=== PATIENT | male | born 1975 | race African-American/Black ===

== ENCOUNTER 2017-01-14 09:43 | Emergency (ER) | payer SELFPAY ==
[2017-01-14 09:51] VITALS: BP 128/88; BMI 21.6
--- NOTE | 2017-01-14 10:47 | DR.GENAD ---
HPI - PCP Primary Care Physician: nfd - HPI Comment HPI Comment: PATIENT UNABLE TO URINATE, ABDOMINAL AND FLANK PAIN, STARTED THIS AM. NO FEVER. - Complaint/Symptoms Chief Complaint Doctors Comments: URINARY RETENSION THIS AM, ABDOMINAL PAIN AND FLANK PAIN. Chief Complaint:: patient stated that he can't urinate. he stated that this started this morning - Nurses notes reviewed Nurses Notes Review: Yes - Source History Provided: Patient - Mode of Arrival Mode of Arrival: Ambulatory - Timing Onset of Chief Complaint: 01/14/17 Came on: Suddenly - Duration Duration: Constant Duration: Hours - Severity Severity: Moderate PMH - PMH Past Medical History: No Past Medical History: [place] Past Surgical History: No Surgical History: No History - Family History History of Family Medical Conditions: Yes Family Medical History: Diabetes Mellitus, Coronary Artery Disease - Social History Does patient currently use any type of tobacco product: Yes Have you used tobacco products in the last 12 months: Yes Type of Tobacco Use: Cigarettes Does any household member use tobacco: No Alcohol Use: DAILY Do you use any recreational Drugs:: No Lives With: Family Lives Where: Home - infectious screening In the last 2 months have you had wt loss of >10#?: NO Have you had fever, night sweats or hemotysis?: No Have you traveled outside the country in the last 6 months?: No Isolation: Standard ROS - Review of Systems Constitutional: No Symptoms Reported. negative: Chills, Fever, Weakness, Fatigue Eyes: No Symptoms Reported. negative: Eye Pain, Discharge ENTM: No Symptoms Reported. negative: Ear Pain, Nose Discharge, Nose Congestion , Throat Pain Respiratoy: No Symptoms Reported. negative: Productive Cough, Non-Productive Cough, Short of Breath, Wheezing, Hemoptysis Cardiovascular: No Symptoms Reported. negative: Chest Pain Gastrointestinal/Abdominal: Abdominal Pain Genitourinary: Other (URINARY RETENSION) Neurological: No Symptoms Reported Musculoskeletal: No Symptoms Reported Integumentary: No Symptoms Reported Hematologic/Lymphatic: No Symptoms Reported Endocrine: No Symptoms Reported All Other Systems: Reviewed and Negative PE - Vital Signs Vitals: Temperature 97.4 F Pulse Rate 71 Respiratory Rate 20 Blood Pressure [Right Arm] 114/71 Blood Pressure [Left Arm] 129/75 Blood Pressure 128/88 O2 Sat by Pulse Oximetry 98 - General Limitations: No Limitations General Appearance: Alert - Head Head Exam: Normal Inspection - Eyes Eye exam: Normal Appearance - ENT ENT Exam: Normal External Ear Exam External Ear Exam: Normal External Inspection TM/Canal Exam: Bilateral Normal Nose Exam: Normal Nose Exam Mouth Exam: Normal Inspection Throat Exam: Normal Inspection - Neck Neck Exam: Trachea Midline - Chest Chest Inspection: Symmetric Chest Wall Rise - Respiratory Respiratory Exam: Normal Lung Sounds Bilat Respiratory Exam: Bilateral Clear to Auscultation - Cardiovascular Cardiovascular Exam: Regular Rate, Normal Rhythm, Normal Heart Sounds - Abdominal Exam Abdominal Exam: Normal Bowel Sounds, Soft, Tenderness Abdominal Tenderness: Other (BLADDER PALPABLE ABOVE UMBILICUS.) - Extremities Extremities Exam: Normal Inspection - Back Back Exam: Normal Inspection - Neurologic Neurological Exam: Alert, Oriented X3 - Psychiatric Psychiatric Exam: Anxious - Skin Skin Exam: Normal Color MDM - Differential Diagnosis Differential Diagnosis: URINARY RETENSION, KIDNEY STONE, UTI Course - Treatment Treatment: SEE ORDERS - Education/Counseling Education/Counseling: Patient, Education Educated On: Treatment, Diagnosis, Needs for Follow Up ROR - Labs Reviewed Laboratory Results Reviewed?: Yes Result Diagrams: 01/14/17 11:10 01/14/17 11:10 Laboratory: WBC 7.2 X10^3/uL (3.6-10.0) 01/14/17 11:10 RBC 4.12 X10^6/uL (4.7-6.0) L 01/14/17 11:10 Hgb 13.0 g/dL (13.5-18.0) L 01/14/17 11:10 Hct 38.7 % (42.0-54.0) L 01/14/17 11:10 MCV 94.0 fL (80.0-100.0) 01/14/17 11:10 MCH 31.5 pg (27.0-34.0) 01/14/17 11:10 MCHC 33.6 g/dL (33.0-35.0) 01/14/17 11:10 RDW 14.7 % (11.6-16.5) 01/14/17 11:10 Plt Count 103 X10^3/uL (150.0-450.0) L 01/14/17 11:10 MPV 10.1 fL (7.4-11.0) 01/14/17 11:10 Neut % 74.5 % (42.0-75.0) 01/14/17 11:10 Lymph % 18.3 % (21.0-51.0) L 01/14/17 11:10 [place] % 6.5 % (0.0-13.0) 01/14/17 11:10 Eos % 0.3 % (0.9-2.9) L 01/14/17 11:10 Baso % 0.4 % (0.2-1.0) 01/14/17 11:10 Neut # 5.4 x10^3/uL (2.2-4.8) H 01/14/17 11:10 Lymph # 1.3 X10^3/uL (1.3-2.9) 01/14/17 11:10 [place] # 0.5 x10^3/uL (0.3-0.8) 01/14/17 11:10 Eos # 0.0 x10^3/uL (0.0-0.2) 01/14/17 11:10 Baso # 0.0 X10^3/uL (0.0-0.1) 01/14/17 11:10 Absolute Nucleated RBC 0.1 /100WBC 01/14/17 11:10 Sodium 139 mmol/L (136-145) 01/14/17 11:10 Corrected Sodium 139 mmol/L (136-145) 01/14/17 11:10 Potassium 4.0 mmol/L (3.5-5.1) 01/14/17 11:10 Chloride 105 mmol/L (98-107) 01/14/17 11:10 Carbon Dioxide 23.2 mmol/L (21-32) 01/14/17 11:10 BUN 12 mg/dL (7-18) 01/14/17 11:10 Creatinine 1.02 mg/dL (0.70-1.30) 01/14/17 11:10 Est GFR (MDRD) Af Amer > 60 (>60) 01/14/17 11:10 Est GFR (MDRD) Non-Af > 60 (>60) 01/14/17 11:10 Glucose 113 mg/dL (65-99) H 01/14/17 11:10 Calcium 8.0 mg/dL (8.5-10.1) L 01/14/17 11:10 Corrected Calcium TNP 01/14/17 11:10 Total Bilirubin 0.30 mg/dL (0.2-1.0) 01/14/17 11:10 AST 29 Units/L (15-37) 01/14/17 11:10 ALT 17 Units/L (12-78) 01/14/17 11:10 Alkaline Phosphatase 60 Units/L (46-116) 01/14/17 11:10 Total Protein 8.1 g/dL (6.4-8.2) 01/14/17 11:10 Albumin 4.1 g/dL (3.4-5.0) 01/14/17 11:10 Globulin 4.0 g/dL (2.5-4.5) 01/14/17 11:10 Albumin/Globulin Ratio 1.0 Ratio (1.1-2.1) L 01/14/17 11:10 Specimen Type Clean catch urine 01/14/17 11:15 Urine Color Bloody (YELLOW) 01/14/17 11:15 Urine Appearance Hazy (CLEAR) 01/14/17 11:15 Urine RBC Tntc /HPF (NEGATIVE) 01/14/17 11:15 Urine WBC 0-3 /HPF (NEGATIVE) 01/14/17 11:15 Ur Squamous Epith Cells Rare /HPF (NEGATIVE) 01/14/17 11:15 Urine Bacteria Trace /HPF (Negative) 01/14/17 11:15 Micro UA Comment Not ordered (-) 01/14/17 11:15 - XRAY XRAY Interpreted by: Radiologist XRAY Findings: REPORT DISCUSS WITH PATIENT. - Diagnosis Discharge Problem: Urinary retention, Flank pain Hydronephrosis Qualifiers: Hydronephrosis type: with other ureteral stricture Qualified Code(s): N13.1 - Hydronephrosis with ureteral stricture, not elsewhere classified - Discharge Plan Disposition: 01 HOME, SELF-CARE Condition: Stable - Follow ups/Referrals Follow ups/Referrals: SHANNAN ARCHIBALD [STAFF PHYSICIAN] - 1 day NFD,None [Primary Care Provider] - 1 day - Instructions Instructions: Acute Urinary Retention, Male, Hydronephrosis, Flank Pain, Easy- to-Read Additional Instructions: SEE UROLOGIST SOON POSSIBLE. YOU ALSO HAVE ENLARGE PROSTATE. UROLOGIST DR RICHARD IS IN [place]. OFFICE NUMBER [id number] AND DR. HDZ IN [place]. OFFICE NUMBER [phone].
[2017-01-14 11:23] LABS: BASOPHILS % (AUTO) 0.4 % (0.2-1.0); EOSINOPHILS % (AUTO) 0.3 % (0.9-2.9); HEMATOCRIT 38.7 % (42.0-54.0); LYMPHOCYTES # (AUTO) 1.3 X10^3/uL (1.3-2.9); LYMPHOCYTES % (AUTO) 18.3 % (21.0-51.0); MEAN CORPUSCULAR HEMOGLOBIN 31.5 pg (27.0-34.0); MEAN CORPUSCULAR HGB CONC 33.6 g/dL (33.0-35.0); MEAN PLATELET VOLUME 10.1 fL (7.4-11.0); MONOCYTES # (AUTO) 0.5 x10^3/uL (0.3-0.8); MONOCYTES % (AUTO) 6.5 % (0.0-13.0); NEUTROPHILS # (AUTO) 5.4 x10^3/uL (2.2-4.8); NEUTROPHILS % (AUTO) 74.5 % (42.0-75.0); PLATELET COUNT 103 X10^3/uL (150.0-450.0); RED BLOOD COUNT 4.12 X10^6/uL (4.7-6.0); RED CELL DISTRIBUTION WIDTH 14.7 % (11.6-16.5); WHITE BLOOD COUNT 7.2 X10^3/uL (3.6-10.0)
[2017-01-14 11:34] LABS: ALANINE AMINOTRANSFERASE 17 Units/L (12-78); ALBUMIN 4.1 g/dL (3.4-5.0); ALKALINE PHOSPHATASE 60 Units/L (46-116); ASPARTATE AMINO TRANSFERASE 29 Units/L (15-37); BLOOD UREA NITROGEN 12 mg/dL (7-18); CARBON DIOXIDE 23.2 mmol/L (21-32); CHLORIDE 105 mmol/L (98-107); COR NA(FOR HYPERGLY) 139 mmol/L (136-145); CREATININE 1.02 mg/dL (0.70-1.30); GLUCOSE 113 mg/dL (65-99); SODIUM 139 mmol/L (136-145); TOTAL PROTEIN 8.1 g/dL (6.4-8.2); eGFR BLACK RACES > 60 (>60); eGFR NON BLACK RACES > 60 (>60)
[2017-01-14 11:48] LABS: APPEARANCE,URINE HAZY (CLEAR); BACTERIA,URINE Trace /HPF (Negative); COLOR,URINE BLOODY (YELLOW); RBC,URINE TNTC /HPF (NEGATIVE); SQUAMOUS EPITHELIAL CELL,UR RARE /HPF (NEGATIVE)
--- NOTE | 2017-01-14 11:55 | CT ---
HISTORY: Hematuria Study: CT abdomen pelvis without contrast Comparison: None Technique: Axial non contrast images with coronal and sagittal reformats. Dose reduction procedures were use with MA/kv adjusted for body size. Findings: The lung bases are clear. The liver, spleen, adrenal glands, and pancreas are within normal limits o nly to the limitations of an unenhanced examination. No opaque stones are visible within the gallbla dder. There is mild fullness of the renal upper collecting systems bilaterally and the ureters bilat erally which can be followed to the bladder. There is marked bladder distension. No renal or uretera l calculi are identified. No significant intraperitoneal or retroperitoneal lymphadenopathy is ident ified. The appendix is normal. There are no findings suggestive of diverticulitis or colitis. Examin ation of the pelvis demonstrated no evidence for pelvic masses, pelvic fluid, or pelvic lymphadenopa thy. The bladder is markedly distended. The prostate is only moderately enlarged measuring 4.7 x 3.7 x 4.8 centimeters. Bladder outlet obstruction is likely present. For the urologic evaluation is rec ommended. No significant skeletal abnormalities are identified. IMPRESSION: Marked bladder distension likely proximal to a bladder outlet obstruction of uncertain etiology poss ibly due to a prominent median lobe of the prostate although the prostate is only moderately enlarge d. The etiologies could not be excluded. Urologic evaluation is recommended. Mild bilateral hydroureteronephrosis proximal to the distended bladder. Reported By:
== END 2017-01-14 13:24 | disposition home or self-care (01) ==
LOC: ER 09:58
DX: N13.1 Hydronephrosis with ureteral stricture, not elsewhere classified (principal); R10.84 Generalized abdominal pain; R33.9 Retention of urine, unspecified
CPT/HCPCS: 36415; 51701; 74176; 80053; 81015; 85025; 99282; 99283

== ENCOUNTER 2017-01-30 01:19 | Emergency (ER) | payer SELFPAY ==
[2017-01-30 01:31] VITALS: BP 120/78; BMI 22.0
[2017-01-30 02:01] LABS: BILIRUBIN,URINE NEGATIVE (NEGATIVE); BLOOD/HEMOGLOBIN,URINE NEGATIVE (NEGATIVE); GLUCOSE, URINE NEGATIVE (NEGATIVE); KETONES,URINE NEGATIVE (NEGATIVE); LEUKOCYTE ESTERASE ,URINE 1+ (NEGATIVE); NITRITES,URINE NEGATIVE (NEGATIVE); PROTEIN,URINE NEGATIVE (NEGATIVE); UROBILINOGEN,URINE NORMAL (NORMAL)
[2017-01-30 02:10] LABS: APPEARANCE,URINE CLEAR (CLEAR); BACTERIA,URINE NEGATIVE /HPF (NEGATIVE); COLOR,URINE YELLOW (YELLOW); RBC,URINE 0-3 /HPF (NEGATIVE); SQUAMOUS EPITHELIAL CELL,UR RARE /HPF (NEGATIVE)
--- NOTE | 2017-01-30 02:22 | DR.GENAD ---
HPI - PCP Primary Care Physician: AQUILINO - HPI Comment HPI Comment: HISTORY BELOW. - Complaint/Symptoms Chief Complaint Doctors Comments: PATIENT WITH URINARY RETENSION DUE TO ENLARGE PROSTATE PRESENTS WITH URINARYFREQUENCY. PATIENT ALSO HAVE HOLE UNDER SCRTUM WHERE URINE CONSTANTLY FLOW. HAVE NOT SEEN UROLOGIST YET. NO FEVER. Chief Complaint:: PEEING MORE OFTEN ONSET 2 HRS, NAUSEA Self Treatment fo Chief Complaint: NONE - Nurses notes reviewed Nurses Notes Review: Yes - Source History Provided: Patient - Mode of Arrival Mode of Arrival: Ambulatory - Timing Onset of Chief Complaint: 01/30/17 Came on: Gradually - Duration Duration: Constant Duration: Weeks PMH - PMH Past Medical History: Yes Past Medical History: [place] Past Surgical History: Yes Surgical History: No History - Family History History of Family Medical Conditions: Yes Family Medical History: Diabetes Mellitus, Coronary Artery Disease - Social History Does patient currently use any type of tobacco product: Yes Have you used tobacco products in the last 12 months: Yes Type of Tobacco Use: Cigarettes Does any household member use tobacco: Yes Alcohol Use: Heavy Do you use any recreational Drugs:: No Lives With: Significant Other Lives Where: Home - infectious screening In the last 2 months have you had wt loss of >10#?: NO Have you had fever, night sweats or hemotysis?: No Have you traveled outside the country in the last 6 months?: No Isolation: Standard ROS - Review of Systems Constitutional: No Symptoms Reported Eyes: No Symptoms Reported ENTM: No Symptoms Reported Respiratoy: No Symptoms Reported Cardiovascular: No Symptoms Reported Gastrointestinal/Abdominal: Abdominal Pain. negative: Constipation, Diarrhea, Vomiting Genitourinary: Frequency, Pain. negative: Dysuria, Hematuria Neurological: No Symptoms Reported Musculoskeletal: No Symptoms Reported Integumentary: No Symptoms Reported Hematologic/Lymphatic: No Symptoms Reported Endocrine: No Symptoms Reported PE - Vital Signs Vitals: Temperature 97.7 F Pulse Rate 86 Respiratory Rate 16 Blood Pressure [Right Arm] 114/71 Blood Pressure [Left Arm] 129/75 Blood Pressure 120/78 O2 Sat by Pulse Oximetry 99 - General Limitations: No Limitations General Appearance: Alert - Head Head Exam: Normal Inspection - Eyes Eye exam: Normal Appearance - ENT ENT Exam: Normal External Ear Exam External Ear Exam: Normal External Inspection TM/Canal Exam: Bilateral Normal Nose Exam: Normal Nose Exam Mouth Exam: Normal Inspection Throat Exam: Normal Inspection - Neck Neck Exam: Trachea Midline. negative: Tenderness, Meningismus, Lymphadenopathy - Chest Chest Inspection: Symmetric Chest Wall Rise - Respiratory Respiratory Exam: Normal Lung Sounds Bilat Respiratory Exam: Bilateral Clear to Auscultation - Cardiovascular Cardiovascular Exam: Regular Rate, Normal Rhythm, Normal Heart Sounds, Other ( NO BLADDER DISTENSION.) - Abdominal Exam Abdominal Exam: Normal Bowel Sounds. negative: Distention - Extremities Extremities Exam: Normal Inspection - Back Back Exam: Normal Inspection - Neurologic Neurological Exam: Alert, Oriented X3 - Psychiatric Psychiatric Exam: Normal Affect, Normal Mood - Skin Skin Exam: Normal Color MDM - Differential Diagnosis Differential Diagnosis: ENLARGE PROSTATE, URINARY RETENSION, URINARY FISTULA Course - Treatment Treatment: SEE ORDERS - Education/Counseling Education/Counseling: Patient, Education Educated On: Diagnosis, Needs for Follow Up ROR - Labs Reviewed Laboratory: Specimen Type Clean catch urine 01/30/17 01:53 Urine Color Yellow (YELLOW) 01/30/17 01:53 Urine Appearance Clear (CLEAR) 01/30/17 01:53 Urine pH 5.0 (5.0 - 8.0) 01/30/17 01:53 Ur Specific [place] 1.010 (1.000-1.030) 01/30/17 01:53 Urine Protein Negative (NEGATIVE) 01/30/17 01:53 Urine Glucose (UA) Negative (NEGATIVE) 01/30/17 01:53 Urine Ketones Negative (NEGATIVE) 01/30/17 01:53 Urine Occult Blood Negative (NEGATIVE) 01/30/17 01:53 Urine Nitrite Negative (NEGATIVE) 01/30/17 01:53 Urine Bilirubin Negative (NEGATIVE) 01/30/17 01:53 Urine Urobilinogen Normal (NORMAL) 01/30/17 01:53 Ur Leukocyte Esterase 1+ (NEGATIVE) 01/30/17 01:53 Urine RBC 0-3 /HPF (NEGATIVE) 01/30/17 01:53 Urine WBC 0-3 /HPF (NEGATIVE) 01/30/17 01:53 Ur Squamous Epith Cells Rare /HPF (NEGATIVE) 01/30/17 01:53 Urine Bacteria Negative /HPF (NEGATIVE) 01/30/17 01:53 Ur Culture Indicated? No/not indicated 01/30/17 01:53 - Diagnosis Discharge Problem: Urinary retention - Discharge Plan Disposition: 01 HOME, SELF-CARE Condition: Stable - Follow ups/Referrals Follow ups/Referrals: NFD,None [Primary Care Provider] - 3 days - Instructions Instructions: Acute Urinary Retention, Male, [id number] Additional Instructions: RETURN TO ER IF WORSE. SEE UROLOGIST IN AM. INFORMATION GIVEN YOU PREVIOUSLY.
== END 2017-01-30 02:30 | disposition home or self-care (01) ==
LOC: ER 01:19
DX: R33.9 Retention of urine, unspecified (principal)
CPT/HCPCS: 81001; 99282

== ENCOUNTER 2018-02-13 00:45 | Emergency (ER) | payer SELFPAY ==
[2018-02-13 00:52] VITALS: BP 110/64; BMI 22.0
--- NOTE | 2018-02-13 01:24 | DR.BITE ---
HPI - Time Seen Time seen: 01:17 - PCP Primary Care Physician: NFD - Complaint/Symptoms Chief Complaint Doctor Comments: Pt. states he sustained an unprovoked attack by an unknown Dog as he was walking home through an open yard. Chief Complaint:: Got bit by a dog about 30 minutes ago - Nurses notes reviewed Nurses Notes Review: Yes - Source History Provided: Patient - Mode of Arrival Mode of Arrival: Ambulatory - Timing Onset of Chief Complaint: 02/13/18 PMH - PMH Past Medical History: No Past Medical History: [place] Past Surgical History: No Surgical History: No History - Family History History of Family Medical Conditions: Yes Family Medical History: Diabetes Mellitus, Coronary Artery Disease - Social History Does patient currently use any type of tobacco product: Yes Have you used tobacco products in the last 12 months: Yes Type of Tobacco Use: Cigarettes Does any household member use tobacco: Yes Alcohol Use: DAILY Do you use any recreational Drugs:: No Lives With: Alone Lives Where: Home - infectious screening In the last 2 months have you had wt loss of >10#?: NO Have you had fever, night sweats or hemotysis?: No Have you traveled outside the country in the last 6 months?: No Isolation: Standard ROS - Review of Systems Constitutional: No Symptoms Reported Eyes: No Symptoms Reported ENTM: No Symptoms Reported Respiratoy: No Symptoms Reported Cardiovascular: No Symptoms Reported Gastrointestinal/Abdominal: No Symptoms Reported Genitourinary: No Symptoms Reported Neurological: No Symptoms Reported Musculoskeletal: Other (dog bite to leg) Integumentary: No Symptoms Reported Hematologic/Lymphatic: No Symptoms Reported Endocrine: No Symptoms Reported Psychiatric: No Symptoms Reported PE - Vital Signs Vital Signs: Temp Pulse Resp BP BP BP Pulse Ox 02/13/18 00:46 98.9 F 93 H 18 110/64 96 01/30/17 01:23 120/78 09/25/15 16:52 114/71 09/19/15 09:00 129/75 - Constitutional Limitations: No Limitations General Appearance: Alert, In No Apparent Distress - Head Head Exam: Normal Inspection - Eyes Eye exam: Normal Appearance - ENT ENT Exam: Normal Exam - Neck Neck Exam: Normal Inspection - Chest Chest Inspection: Normal Inspection - Respiratory Respiratory Exam: Normal Lung Sounds Bilat - Cardiovascular Cardiovascular Exam: Regular Rate, Normal Rhythm - Abdominal Exam Abdominal Exam: Normal Inspection, Normal Bowel Sounds, Soft - Extremities Extremities Exam: Normal Inspection - Back Back Exam: Normal Inspection - Neurologic Neurological Exam: Alert - Psychiatric Psychiatric Exam: Normal Affect - Skin Skin Exam: Warm, Dry, Other (linear abrasions noted on right calf) - Diagnosis Discharge Problem: Dog scratch Discharge Problem: (Ruled Out): Dog bite of calf - Discharge Plan Disposition: HOME, SELF-CARE Condition: Stable - Follow ups/Referrals Follow ups/Referrals: NFD,None [Primary Care Provider] - 3 days - Instructions Instructions: Wound Care, Adult
[2018-02-13] MEDS ORDERED: AUGMENTIN 500 MG/125 MG TAB PO ONE ×2 (01:27→01:51)
[2018-02-13] MEDS ORDERED: ADACEL TDaP IM ONE ×2 (02:11→02:14)
== END 2018-02-13 02:22 | disposition home or self-care (01) ==
LOC: ER 00:45
DX: S80.811A Abrasion, right lower leg, initial encounter (principal); W54.0XXA Bitten by dog, initial encounter; Y93.01 Activity, walking, marching and hiking; Y92.89 Other specified places as the place of occurrence of the external cause
CPT/HCPCS: 90471; 99281; 99282